=== PATIENT | female | born 1995 | race Caucasian/White ===

== ENCOUNTER → 2018-07-29 | Outpatient (REF) | payer BC, MEDICAID | LOC: M LAB REF 13:12 | PROVIDERS: ATTEND Advanced Practice Midwife | DX: Z34.81 Encounter for supervision of other normal pregnancy, first trimester (principal) ==

== ENCOUNTER → 2018-09-07 | Outpatient (CLI) | payer BC, MEDICAID ==
--- NOTE | 2018-09-08 04:27 | REP ---
Clinical: Anatomical evaluation. Comparison: None . Findings: Examination demonstrates a single live intrauterine in breech presentation. motion is identified by technologist. Placenta is noted posterofundally and grade zero with evidence for placenta previa. A large hematoma/subchorionic hemorrhage at the internal os is identified and measures 8.1 x 7.7 x 1.8 cm. Amniotic fluid volume is normal. Cervix measures 5.9 cm in length and appears closed. No evidence for nuchal cord. Gestational age by LMP 18 weeks 3 days with MARIA ANTONIA 02/05/2019 . Gestational age by current measurements 18 weeks 1 day with MARIA ANTONIA 02/07/2019 . FHR equals 157 beats per minute. BPD 3.8 cm 17 weeks 5 days HC 14.5 cm 17 weeks 5 days AC 12.8 cm 18 weeks 2 days FL 2.8 cm 18 weeks 4 days HL 2.6 cm 18 weeks 1 day HC/AC ratio 1.14 Estimated weight 235 grams ( 44th percentile). Anatomical assessment demonstrates normal structures including cranium, choroid plexus, cavum, cerebellum/posterior fossa, diaphragm, stomach, cord insertion/three-vessel cord, kidneys/bladder, spine, and extremities. Limited evaluation of the facial features, lungs, and heart/ventricular outflow tracts noted. Impression: 1. Live intrauterine in breech presentation demonstrating appropriate interval growth. 2. Placenta previa and subchorionic hemorrhage/hematoma as described above along with incomplete anatomical assessment warrants reevaluation and follow-up. Electronically Signed by Mark Mak MD 09/08/2018 04:18 A
== END ==
LOC: M RAD 17:37
PROVIDERS: ATTEND Advanced Practice Midwife
DX: Z34.82 Encounter for supervision of other normal pregnancy, second trimester (principal); Z3A.18 18 weeks gestation of pregnancy

== ENCOUNTER → 2018-10-05 | Outpatient (CLI) | payer BC, MEDICAID ==
--- NOTE | 2018-10-06 02:57 | REP ---
Clinical: Anatomical evaluation. Comparison: 09/07/2018 . Findings: Examination demonstrates a single live intrauterine in breech presentation. motion is identified by technologist. Placenta is noted posterior and grade zero without evidence for placenta previa or abruption. Amniotic fluid volume is normal. Cervix measures 4.3 cm in length and appears closed. No evidence for nuchal cord. Gestational age by LMP 22 weeks 3 days with MARIA ANTONIA 02/05/2019 . Gestational age by current measurements 22 weeks 0 days with MARIA ANTONIA 02/08/2019 . FHR equals 146 beats per minute. Estimated weight 503 grams ( 46 percentile). Anatomical assessment demonstrates normal structures including facial features, lungs, four-chamber heart/ventricular outflow tracts. The placenta tip is 4.4 cm from the closed internal os. The previously noted subchorionic hemorrhage is again identified and measures 7.3 x 2.3 x 7.1 cm. Impression: 1. Single live intrauterine in breech presentation demonstrating appropriate interval growth. 2. In conjunction with prior examination anatomical assessment is complete and normal. 3. Subchorionic hemorrhage again identified. Electronically Signed by Mark Mak MD 10/06/2018 02:48 A
== END ==
LOC: M RAD 16:38
PROVIDERS: ATTEND Obstetrics & Gynecology
DX: Z34.82 Encounter for supervision of other normal pregnancy, second trimester (principal); Z3A.22 22 weeks gestation of pregnancy

== ENCOUNTER → 2019-01-12 | Outpatient (CLI) | payer BC, MEDICAID ==
[~2019-01-12] MED LIST: PRENTAB9 PO; PSEU30TA85 PO
== END ==
LOC: M SMT 10:15
PROVIDERS: ATTEND Advanced Practice Midwife
DX: Z34.83 Encounter for supervision of other normal pregnancy, third trimester (principal); Z36.89 Encounter for other specified antenatal screening; Z36.85 Encounter for antenatal screening for Streptococcus B

== ENCOUNTER 2019-01-21 02:41 | Outpatient (CLI) | payer BC, MEDICAID ==
[~2019-01-21] VITALS: Ht 172.7 cm; Wt 82.5 kg
[2019-01-21 03:11] VITALS: BP 115/71
[2019-01-21] MEDS ORDERED: PSEU30TA85 PO (03:58)
[2019-01-21] MEDS ORDERED: PRENTAB9 PO (03:58)
[2019-01-21 07:41] VITALS: BP 116/65
--- NOTE | 2019-01-21 08:14 | IPN ---
DATE: 01/21/2019 Yulia is a 23-year-old 2, para 1-0-0-1, 37-6/7 weeks gestation, estimated date of confinement (EDC) of 02/05/2019 based on last menstrual period confirmed by first trimester ultrasound who presented to labor and delivery at approximately 0300 with complaint of painful contractions. Denies vaginal bleeding, leakage of fluid. The fetus has been active. She had intercourse late evening hours prior to her arrival. Her care was initiated at [facility] in the first trimester. course complicated by a history of placenta previa that had resolved October 2018. OBSTETRICAL HISTORY: September 2017 38-4/7 weeks, 8 pounds 9 ounces male, vaginal delivery uncomplicated. OBSTETRIC LABS: A+, antibody screen negative, rubella immune, VDRL nonreactive. Urine culture no growth. Hep B surface antigen negative, HIV negative. Hep C antibody nonreactive. Gonorrhea and chlamydia negative. She did not have genetic serum screening labs performed. Gestational diabetic screening normal at 88 and her GBS is negative. PAST MEDICAL HISTORY: Lichen sclerosis in the perianal region. SURGERIES: [place] tooth extraction. FAMILY HISTORY: Diabetes, hypertension, heart disease. SOCIAL HISTORY: The patient is . Her is at bedside and supportive. She is a nonsmoker. She denies alcohol and drug use. No history of any sexually transmitted infections and denies history of abuse physical, sexual and emotional ALLERGIES: No known drug allergies. CURRENT MEDICATIONS: vitamin. OBJECTIVE: Temperature 98.8, pulse 96, respirations 18, BP 115/71. Upon arrival, she was not evaluated by this provider. It is now 0750 and she does appear completely comfortable. She is smiling and talkative and in no distress. The heart rate is 140 with moderate variability, positive accelerations, no decelerations observed. There is occasional contraction. Her sterile vaginal exam: 3-4, 80% effaced, -1 station. There is some moderate show with the exam. Abdomen: Gravid, cephalic presentation. Estimated weight 8 pounds. ASSESSMENT: Interim at 37-6/7 weeks. heart rate category 1, not in active labor. PLAN: Discharge the patient to home. She is to keep her next scheduled visit. I did review signs and symptoms of active labor, movement counts and danger signs to report. I did review access to care. The patient and her partner have had all their questions answered and are agreeable to this plan.
== END 2019-01-21 08:11 | disposition home or self-care (01) ==
LOC: M LDO 02:41
PROVIDERS: ATTEND Advanced Practice Midwife
DX: O47.1 False labor at or after 37 completed weeks of gestation (principal); Z3A.37 37 weeks gestation of pregnancy
CPT/HCPCS: 59025; G0378; G0463

== ENCOUNTER 2019-01-28 09:41 | Inpatient (IN) | payer BC, MEDICAID ==
[~2019-01-28] VITALS: Ht 172.7 cm; Wt 83.9 kg
[2019-01-28] VITALS (8 sets, daily range): BP systolic 112–136; BP diastolic 62–82
--- NOTE | 2019-01-28 10:31 | HPEPDOC ---
Obstetrical History & Physical General Date of Admission Jan 28, 2019 at 10:17 History of Present Illness Chief Complaint: Contractions, term Information Provided By: Patient Age: 23 : 2 Term: 1 Pre-term: 0 Abortions: 0 Livin Care Care: Good Care Dating Final EDC: Feb 05, 2019 Final EDC by: LMP EGA at Admission: 38 (+6) Antepartum Course Height (inches): 68 Pre- weight (lbs.): 155 Admission Weight (lbs.): 184 Past Medical History Past Obstetrical History : Past Obstetrical History: Primgravida (2018) Type of Delivery: Spontaneous Vaginal Del. 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 Past Medical History Medical History perineal lichen sclerosis Surgical History: Other (dental) Family History Significant Family History: Diabetes, Heart disease, Hypertension Social History Marital Status: Family situation: Spouse/partner home Psychosocial History: No pertinent psych hx * Smoker: non-smoker Alcohol: Denies Drugs: denies Abuse Violence Screening Have you been hit/kicked/slapp: No Imunizations Tdap status: current Allergies Coded Allergies: No Known Allergies (Unverified , 01/21/19) Medications Scheduled No.137/Iron/Folic Acd ( Vitamin Tablet) 1 Each Tablet, 1 TAB PO DAILY Scheduled PRN Pseudoephedrine HCl (Sudafed) 30 Mg Tablet, 30 MG PO Q6-8HP PRN for CONGESTION Physical Examination Physical Examination GENERAL: Alert and oriented times three. BREAST: . ABDOMEN: Gravid and non-tender to touch. FETUS: Is vertex (VTX) by sterile vaginal examination (SVE), fetus is vertex (VTX) by Kristopher. HEART RATE: Regular rate and rhythm. LUNGS: Clear to auscultation (CTA). EXTREMITIES: No edema. No clonus. Deep tendon reflexes (DTRs) + 2. Pertinent Laboratoy Data Blood Type: A+ RBC Antibody Screen: Negative HIV: Negative Hepatitis B: Negative Hepatitis C: Negative Rapid Plasma Reagin: Nonreactive Rubella: Immune Chlamydia/Gonorrhea: Negative Group B Streptococcus: Negative Quad Screen Test: Declined Glucose Tolerance Test: 88 Anatomy Ultrasound Ultrasound Date: September 07, 2018 Placenta Location: Posterior (fundal) Normal Anatomy: Yes Placenta Previa: Yes (large subchorionic hematoma) Estimated Weight (grams): 235 Other Ultrasounds 07/27/18 dating 11w5d 08/16/18 bleeding, subchorionic hemorrhage 10/05/18 f/u anatomy. previa resolved, 4.4cm from inner os. normal anatomy Steroid Therapy Steroid Therapy: No Vaginal Examination Dilation: 6 cm Effacement: 90% Station: -1, 0 Cervical Consistency: Soft Cervical Position: Middle Presentation: Cephalic presentation Assessment Heart Rate (FHR): 140 Variability: Moderate Accelerations: Positive Decelerations: None Tocometer Contractions: Yes Frequency: regular, every 2-5 min. Duration: greater than 60 seconds Strength: palpated as moderate Assessment/Plan Assessment Yulia is a 23-year-old (G)2 para (P)1-0-0-1 at 38+6 weeks by 11-week ultrasound. Presents to Labor and Delivery (L&D) with complaints of contractions through the night. Was evaluated by Anastasia Liang this am in office, found to be 5cm. Now reporting stronger, more uncomfortable UC. Plan Admit and orient. [employer] and consent. Diet: clear liquids. Group B Streptococcus (GBS) negative. Labs and intravenous (IV) per unit protocol. Counseled on Pitocin and induction of labor (IOL). Saline lock Pt plans to labor ad [place]. Desires to use the tub Anticipate normal spontaneous delivery (). C-S as appropriate. Kae Saini CNM Jan 28, 2019 10:31
[2019-01-28 10:56] LABS: HEMATOCRIT 36.8 % (36.0-47.0); HEMOGLOBIN 12.5 g/dl (12.0-15.5); MEAN CORPUSCULAR HEMOGLOBIN 33.5 pg (27.0-33.0); MEAN CORPUSCULAR VOLUME 98.7 fl (80.0-96.0); PLATELET COUNT, AUTOMATED 218 10^3/uL (150-450); RED BLOOD COUNT 3.73 10^6/uL (4.00-5.40); WHITE BLOOD COUNT 11.7 10^3/uL (4.0-10.0)
[2019-01-28] MEDS ORDERED: OXYTOCIN 30 UNITS IN 0.9% NaCl 500ML IV BAG (J2590) As Ordered ONE (13:22)
[2019-01-28] MEDS ORDERED: OXYTOCIN DRIP 30 UNITS in IV 1 EA IV SCH (14:18)
[2019-01-28] MEDS ORDERED: RHOGAM 300 MCG (1500 IU) INJ (J2790) IM SCH (14:30)
[2019-01-28] MEDS ORDERED: IBUPROFEN 600 MG TAB PO PRN (14:30)
[2019-01-28] MEDS ORDERED: ANUSOL HC CREAM 30GM TOP PRN (14:30)
[2019-01-28] MEDS ORDERED: MEASLES,MUMPS,RUBELLA VACCINE INJ (MMR-II) (90707) SC SCH (14:30)
[2019-01-28] MEDS ORDERED: MOM 30ML SUSPENSION UDC PO PRN (14:30)
[2019-01-28] MEDS ORDERED: LIDOCAINE 1% MDV 20ML VIAL INFIL ONE (14:30)
[2019-01-28] MEDS: IBUPROFEN 800 MG TAB PO PRN (14:41)
[2019-01-28] MEDS: DIBUCAINE 1% OINTMENT 30GM TOP PRN (14:42)
--- NOTE | 2019-01-28 14:51 | DNPDOC ---
[facility] Delivery Note Delivery Note DATE OF DELIVERY: January 28, 2019 PREDELIVERY DIAGNOSIS: 38-6/7 weeks' gestation and labor. POST DELIVERY DIAGNOSIS: Delivered. PROCEDURE: Spontaneous vaginal delivery. PROVIDER: Kae Saini CNM ANESTHESIA: None. ESTIMATED BLOOD LOSS: 200 mL. FINDINGS: 8 pound 11 ounce, 3930gm male , Score 8/9, no nuchal cord. DELIVERY SUMMARY: Patient is a 23-year-old 2 now para 2-0-0-2 who was admitted to labor and delivery for active labor. She coped physiologically with her labor. AROM clear fluid 1309. FD 1335. Viable male delivered HELEN in all- fours position without difficulty at 1346. Spontaneous respirations, transitioned on maternal abdomen. Cord doubly clamped and cut by FOB under my direction once pulsations ceased. Apgars 8/9. Placenta [place], intact with 3v cord @ 1352. Fundus firmed with massage and IV pitocin bolus. Perineum, cervix and vagina inspected. First degree perineal laceration repaired with 3-0 vicryl rapide after infiltration with lidocaine. R labial abrasion also infiltrated and reapproximated with one single stitch of same suture. Cervix swept of clots. EBL 200ml. Sponge, sharp and instrument count correct. Kae Saini CNM Jan 28, 2019 14:27
[2019-01-28] MEDS: METHYLERGONOVINE MALEATE 0.2 MG TAB PO SCH ×2 (15:32→21:21)
[2019-01-28] MEDS: ACETAMINOPHEN 500 MG TAB PO PRN (19:26)
[2019-01-28] MEDS: DOCUSATE SODIUM 100 MG CAP PO PRN (21:21)
[2019-01-29] MEDS: IBUPROFEN 800 MG TAB PO PRN ×3 (00:22→19:56)
[2019-01-29] MEDS: ACETAMINOPHEN 500 MG TAB PO PRN (04:09)
[2019-01-29] MEDS: METHYLERGONOVINE MALEATE 0.2 MG TAB PO SCH ×2 (04:10→08:42)
[2019-01-29 05:51] VITALS: BP 103/66
--- NOTE | 2019-01-29 07:03 | IPNPDOC ---
Text Note Date of Service The patient was seen on 01/29/19. NOTE PP#1 Feels well. OOB independently. Nursing. Voiding VSS, afebrile, normotensive Breasts soft, nipples intact Fundus firm, NT, down 1 FB Lochia rubra light without odor Perineum well approximated without edema PP #1, Routine care. Anticipate D/C in am VS,Fishbone, I+O VS, Fishbone, I+O Laboratory Tests 01/28/19 10:48 Red Blood Count 3.73 L, Mean Corpuscular Volume 98.7 H, Mean Corpuscular Hemoglobin 33.5 H, Mean Corpuscular Hemoglobin Concent 34.0, Red Cell Distribution Width 12.8 Vital Signs Date Time Temp Pulse Resp B/P (MAP) Pulse Ox O2 Delivery O2 Flow Rate FiO2 01/29/19 05:51 98.5 89 16 103/66 (78) 96 I&O- Last 24 Hours up to 6 AM 01/29/19 06:00 Output Total 200 ml Balance -200 ml Kae Saini CNM Jan 29, 2019 07:02
[2019-01-29] MEDS: PRENATAL VITAMINS CHEWABLE TABLET PO SCH (08:42)
[2019-01-29] MEDS: ACETAMINOPHEN TAB 650MG DOSE (2X325MG) PO PRN ×3 (12:04→21:15)
[2019-01-29] MEDS ORDERED: METHYLERGONOVINE MALEATE 0.2 MG TAB PO PRN (15:00)
[2019-01-29 17:31] VITALS: BP 108/60
[2019-01-29] MEDS: DOCUSATE SODIUM 100 MG CAP PO PRN (21:14)
[2019-01-30] MEDS: ACETAMINOPHEN TAB 650MG DOSE (2X325MG) PO PRN (02:03)
[2019-01-30] MEDS: IBUPROFEN 800 MG TAB PO PRN ×2 (04:38→12:39)
[2019-01-30 06:00] VITALS: BP 103/57
[2019-01-30] MEDS: PRENATAL VITAMINS CHEWABLE TABLET PO SCH (09:27)
[2019-01-30] MEDS: DIBUCAINE 1% OINTMENT 30GM TOP PRN (09:28)
[2019-01-30] MEDS: ACETAMINOPHEN 500 MG TAB PO PRN (09:28)
[2019-01-30] MEDS ORDERED: IBUP80TA PO (10:09)
== END 2019-01-30 13:06 | disposition home or self-care (01) | DRG 560 ==
LOC: M LDO 09:41 → M LDI 10:17 → M OBS 16:46
PROVIDERS: ADMIT Advanced Practice Midwife; ATTEND Advanced Practice Midwife
PROC: 10E0XZZ Delivery of Products of Conception, External Approach (ICD-10-PCS; principal; 2019-01-28)
PROC: 10907ZC Drainage of Amniotic Fluid, Therapeutic from Products of Conception, Via Natural or Artificial Opening (ICD-10-PCS; 2019-01-28)
PROC: 0HQ9XZZ Repair Perineum Skin, External Approach (ICD-10-PCS; 2019-01-28)
DX: O70.0 First degree perineal laceration during delivery (principal); Z3A.38 38 weeks gestation of pregnancy; Z37.0 Single live birth

== ENCOUNTER → 2019-03-15 | Outpatient (REF) | payer BC, MEDICAID ==
[~2019-03-15] MED LIST changes: +IBUP80TA PO
[2019-03-15 11:53] LABS: CHLAMYDIA DNA AMPLIFICATION NEGATIVE (NEGATIVE); GC DNA AMPLIFICATION NEGATIVE (NEGATIVE)
== END ==
LOC: M LAB REF 09:51
PROVIDERS: ATTEND Advanced Practice Midwife
DX: Z11.3 Encounter for screening for infections with a predominantly sexual mode of transmission (principal)

== ENCOUNTER 2020-05-06 11:30 | Emergency (ER) | payer BC, MEDICAID ==
[~2020-05-06] VITALS: Ht 172.7 cm; Wt 66.0 kg
[2020-05-06] MEDS ORDERED: PIME1CRE (11:36)
[2020-05-06] MEDS ORDERED: ACET-683 PO (11:36)
[2020-05-06 12:28] LABS: BASO % 0.6 % (0.0-1.0); EOS # 0.1 10^3/uL (0.0-0.5); HEMATOCRIT 40.6 % (36.0-47.0); LYMPH # 3.4 10^3/uL (1.5-5.0); LYMPH % 49.4 % (24.0-44.0); MEAN CORPUSCULAR HEMOGLOBIN 31.3 pg (27.0-33.0); MEAN CORPUSCULAR VOLUME 97.6 fl (80.0-96.0); MONO # 0.5 10^3/uL (0.0-0.8); MONO % 7.1 % (0.0-5.0); NEUTROPHILS # 2.9 10^3/uL (1.5-8.5); NEUTROPHILS % 41.6 % (36.0-66.0); PLATELET COUNT, AUTOMATED 275 10^3/uL (150-450); RED BLOOD COUNT 4.16 10^6/uL (4.00-5.40); WHITE BLOOD COUNT 6.9 10^3/uL (4.0-10.0)
[2020-05-06 12:31] LABS: APPEARANCE, URINE CLEAR (CLEAR); BACTERIA, URINE AUTO NEGATIVE (NEGATIVE); BILIRUBIN, URINE AUTO NEGATIVE (NEGATIVE); BLOOD, URINE BLOOD 1+ (NEGATIVE); COLOR, URINE YELLOW (YELLOW); GLUCOSE, URINE (UA) AUTO NEGATIVE (NEGATIVE); KETONE, URINE AUTO NEGATIVE (NEGATIVE); LEUKOCYTE ESTERASE, URINE AUTO NEGATIVE (NEGATIVE); MUCUS, URINE SMALL (NEGATIVE); NITRITE, URINE AUTO NEGATIVE (NEGATIVE); PROTEIN, URINE AUTO NEGATIVE (NEGATIVE); RBC, URINE AUTO 12 /HPF (0-3); SPECIFIC GRAVITY URINE AUTO 1.023 (1.002-1.035); SQUAMOUS EPITHELIAL CELL UR AU 0 /HPF (0-6); UROBILINOGEN, URINE AUTO 0.2 mg/dL (0.0-2.0); WBC, URINE AUTO 0 /HPF (0-3)
[2020-05-06 13:03] LABS: BLOOD UREA NITROGEN 17 MG/DL (7-18); CARBON DIOXIDE LEVEL 28 MEQ/L (21-32); CHLORIDE LEVEL 105 MEQ/L (98-107); CREATININE FOR GFR 0.81 MG/DL (0.55-1.30); GLOMERULAR FILTRATION RATE > 60.0 (>60); GLUCOSE, FASTING 95 MG/DL (70-100); HCG, SERUM QUANTITATIVE 489 MIU/ML; POTASSIUM SERUM 4.1 MEQ/L (3.5-5.1); SODIUM LEVEL 139 MEQ/L (136-145)
--- NOTE | 2020-05-06 14:30 | REP ---
INDICATION: 4-5 wks with vag bleeding COMPARISON: None. TECHNIQUE: Transabdominal and transvaginal 1st trimester obstetrical ultrasound with color Doppler evaluation. FINDINGS: Heterogeneous anteverted uterus measures 9.2 x 3.8 x 5.5 cm. The endometrial complex measures 11 mm thickness and a small amount of heterogeneous endocervical fluid is compatible with hemorrhagic debris and consistent with the patient's current vaginal bleeding. No intrauterine identified. Bilateral ovaries are normal in appearance and vascularity without torsion. Right ovary measures 3.3 x 1.9 x 2.4 cm (RI 0.48). Left ovary measures 3.3 x 1.9 x 2.7 cm (RI 0.62) and includes 2.2 cm complex cyst possible corpus luteum. No pelvic fluid or adnexal mass lesion noted. IMPRESSION: Findings described above likely represent spontaneous in progress. Differential diagnosis may include early and less likely ectopic cannot be excluded. <Electronically signed by Mark Mak > 05/06/20 0388
[2020-05-06 14:34] VITALS: BP 107/66
== END 2020-05-06 14:36 | disposition home or self-care (01) ==
LOC: M ED 11:30
DX: O20.9 Hemorrhage in early pregnancy, unspecified (principal); Z3A.01 Less than 8 weeks gestation of pregnancy

== ENCOUNTER → 2020-05-24 | Outpatient (REF) | payer BC, MEDICAID ==
[~2020-05-24] MED LIST changes: +ACET-683 PO; +PIME1CRE
== END ==
LOC: M SFHCWAGY 16:50 → M PLALAB 16:50
PROVIDERS: ATTEND Advanced Practice Midwife
DX: O03.9 Complete or unspecified spontaneous abortion without complication (principal)

== ENCOUNTER → 2020-07-03 | Outpatient (REF) | payer BC, MEDICAID ==
[2020-07-03 14:20] LABS: HEMATOCRIT 38.4 % (36.0-47.0); HEMOGLOBIN 12.3 g/dl (12.0-15.5); MEAN CORPUSCULAR HEMOGLOBIN 31.1 pg (27.0-33.0); PLATELET COUNT, AUTOMATED 301 10^3/uL (150-450); RED BLOOD COUNT 3.96 10^6/uL (4.00-5.40); WHITE BLOOD COUNT 6.5 10^3/uL (4.0-10.0)
[2020-07-03 15:39] LABS: HEPATITIS C VIRUS ABY INDEX < 0.0 INDEX (<0.8); HIV 1&2 SCREEN CENTAUR NEGATIVE (NEGATIVE)
== END ==
LOC: M PLALAB 11:30
PROVIDERS: ATTEND Advanced Practice Midwife
DX: Z36.89 Encounter for other specified antenatal screening (principal); Z3A.08 8 weeks gestation of pregnancy

== ENCOUNTER → 2020-09-14 | Outpatient (CLI) | payer BC, MEDICAID ==
--- NOTE | 2020-09-14 09:15 | REP ---
INDICATION: ANATOMY COMPARISON: 05/06/2020 TECHNIQUE: Transabdominal obstetrical ultrasound with color Doppler evaluation. FINDINGS: Examination demonstrates a single live intrauterine in breech presentation. motion is identified by technologist. Placenta is noted anterior and grade 0 without evidence for placenta previa or abruption. Amniotic fluid volume is normal. Cervix measures 3.0 cm in length and appears closed.. Gestational age by LMP 18 weeks 6 days with MARIA ANTONIA 02/09/2021. Gestational age by current measurements 19 weeks 2 days with MARIA ANTONIA 02/06/2021. FHR equals 158 beats per minute. Estimated weight 283 grams (71stpercentile). Anatomical assessment demonstrates normal structures including cranium, choroid plexus, cavum, cerebellum/posterior fossa, facial features, lungs, diaphragm, stomach, cord insertion/three-vessel cord, kidneys/bladder, spine, and extremities. IMPRESSION: Single live intrauterine in breech presentation demonstrating appropriate estimated weight. Limited evaluation of the heart/ventricular outflow tracts. Remainder of the anatomical assessment is complete and normal. <Electronically signed by Mark Mak > 09/14/20 0910
== END ==
LOC: M WHC 08:05
PROVIDERS: ATTEND Advanced Practice Midwife
DX: Z36.89 Encounter for other specified antenatal screening (principal); Z3A.18 18 weeks gestation of pregnancy

== ENCOUNTER → 2020-10-03 | Outpatient (CLI) | payer BC, MEDICAID ==
--- NOTE | 2020-10-03 10:13 | REP ---
INDICATION: F/U ANATOMY COMPARISON: 09/14/2020 TECHNIQUE: Transabdominal obstetrical ultrasound with color Doppler evaluation. FINDINGS: Examination demonstrates a single live intrauterine in cephalic presentation. motion is identified by technologist. Placenta is noted anterior and grade 1 without evidence for placenta previa or abruption. Amniotic fluid volume is normal. Cervix measures 4.0 cm in length and appears closed.. Gestational age by LMP and 1st U/S 21 weeks 4 days with MARIA ANTONIA 02/09/2021. Gestational age by current measurements 22 weeks 1 day with MARIA ANTONIA 02/05/2021. FHR equals 142 beats per minute. Estimated weight 486 grams (53rdpercentile). Anatomical assessment demonstrates normal structures including cranium, choroid plexus, cavum, cerebellum/posterior fossa, facial features, lungs, four-chamber heart/ventricular outflow tracts, diaphragm, stomach, cord insertion/three-vessel cord, kidneys/bladder, and extremities. IMPRESSION: Single live intrauterine in cephalic presentation demonstrating appropriate interval growth. In conjunction with prior examination anatomical assessment is complete and normal. <Electronically signed by Mark Mak > 10/03/20 1859
== END ==
LOC: M WHC 08:07
PROVIDERS: ATTEND Advanced Practice Midwife
DX: Z36.89 Encounter for other specified antenatal screening (principal); Z3A.21 21 weeks gestation of pregnancy

== ENCOUNTER 2020-11-21 15:18 | Outpatient (CLI) | payer BC, MEDICAID ==
--- NOTE | 2020-11-21 18:10 | IPN ---
PROGRESS NOTE DATE: 11/21/2020 SUBJECTIVE: Yulia is a 25-year-old 4, para 2-0-1-2 at 28-4/7 weeks' gestation, EDC of 02/09/2021 based on first trimester ultrasound presents to labor and delivery today with a complaint of decreased movement. She does deny vaginal bleeding, leakage of fluid, and regular painful contractions. [place] with a transfer of care to [facility] in the second trimester. course complicated by chronic lichen sclerosus. OBSTETRIC HISTORY: 1. September 2017, 39 weeks gestation, 8 pound, 9 ounce male, vaginal delivery. No complications. 2. January 2019, 38 weeks gestation, 8 pound, 11 ounce male, vaginal delivery, placenta previa that resolved spontaneously. 3. Six week spontaneous miscarriage. 4. Current . OBSTETRIC LABS: A positive, antibody screen negative. Urine culture no growth. Rubella immune. Gonorrhea and chlamydia negative. HIV negative. Hepatitis C negative. Hepatitis B negative. Gestational diabetic screening pending. PAST MEDICAL HISTORY: Lichen sclerosus. SURGERIES: Dental. FAMILY HISTORY: Diabetes, hypertension, heart disease. SOCIAL HISTORY: The patient is . Her is at bedside. She is a nonsmoker. Denies alcohol and drug use. No history of sexually transmitted infections. Denies history of abuse, physical, sexual and emotional. ALLERGIES: No known drug allergies. CURRENT MEDICATIONS: vitamin. OBJECTIVE: Vital signs: Blood pressure 115/61. The heart rate is appropriate for gestational age 150 with moderate variability. There is no pattern of regular contractions. SVE deferred. ASSESSMENT: Intrauterine at 28 and 4/7 weeks. heart rate appropriate for gestational age. The patient is reassured. PLAN: Discharged the patient home. She is to follow up for her next scheduled appointment at [facility]. I did review signs and symptoms of labor, movement counts and access to care as well as danger signs. The patient and her have had all of their questions answered and do desire discharge.
== END 2020-11-21 17:15 | disposition home or self-care (01) ==
LOC: M LDO 15:18
PROVIDERS: ATTEND Advanced Practice Midwife
DX: O36.8130 Decreased fetal movements, third trimester, not applicable or unspecified (principal); Z3A.28 28 weeks gestation of pregnancy; O99.713 Diseases of the skin and subcutaneous tissue complicating pregnancy, third trimester; L90.0 Lichen sclerosus et atrophicus
CPT/HCPCS: 59025; G0378; G0463

== ENCOUNTER → 2021-01-10 | Outpatient (REF) | payer BC, MEDICAID ==
[~2021-01-10] MED LIST changes: -PSEU30TA85 PO; +PSEU30TA86 PO
== END ==
LOC: M SFHCWAGY 16:57
PROVIDERS: ATTEND Advanced Practice Midwife
DX: Z34.83 Encounter for supervision of other normal pregnancy, third trimester (principal)

== ENCOUNTER → 2022-07-16 | Outpatient (CLI) | payer OTHER | LOC: M PLALAB 12:28 | PROVIDERS: ATTEND Advanced Practice Midwife | DX: Z34.90 Encounter for supervision of normal pregnancy, unspecified, unspecified trimester (principal); L53.9 Erythematous condition, unspecified; N89.8 Other specified noninflammatory disorders of vagina ==

== ENCOUNTER → 2022-09-19 | Outpatient (CLI) | payer OTHER ==
[2022-09-19 14:19] LABS: HEMATOCRIT 39.9 % (36.0-47.0); HEMOGLOBIN 12.9 g/dl (12.0-15.5); MEAN CORPUSCULAR HGB CONC 32.3 g/dl (32.0-36.5); MEAN CORPUSCULAR VOLUME 95.9 fl (80.0-96.0); PLATELET COUNT, AUTOMATED 336 10^3/uL (150-450); RED BLOOD COUNT 4.16 10^6/uL (4.00-5.40); WHITE BLOOD COUNT 8.1 10^3/uL (4.0-10.0)
[2022-09-19 14:25] LABS: HIV 1&2 SCREEN NEGATIVE (NEGATIVE)
[2022-09-19 21:57] LABS: GC DNA AMPLIFICATION NEGATIVE (NEGATIVE)
== END ==
LOC: M PLALAB 10:12
PROVIDERS: ATTEND Advanced Practice Midwife
DX: Z34.81 Encounter for supervision of other normal pregnancy, first trimester (principal)

== ENCOUNTER → 2022-11-12 | Outpatient (CLI) | payer BC, OTHER | LOC: M WHC 12:24 | PROVIDERS: ATTEND Advanced Practice Midwife | DX: Z34.82 Encounter for supervision of other normal pregnancy, second trimester (principal); Z3A.20 20 weeks gestation of pregnancy ==

== ENCOUNTER → 2023-01-07 | Outpatient (CLI) | payer BC, OTHER ==
[2023-01-07 13:50] LABS: HEMATOCRIT 35.5 % (36.0-47.0); HEMOGLOBIN 11.5 g/dl (12.0-15.5); MEAN CORPUSCULAR HGB CONC 32.4 g/dl (32.0-36.5); MEAN CORPUSCULAR VOLUME 98.9 fl (80.0-96.0); PLATELET COUNT, AUTOMATED 276 10^3/uL (150-450); RED BLOOD COUNT 3.59 10^6/uL (4.00-5.40); WHITE BLOOD COUNT 9.2 10^3/uL (4.0-10.0)
== END ==
LOC: M PLALAB 10:26
PROVIDERS: ATTEND Advanced Practice Midwife
DX: Z34.82 Encounter for supervision of other normal pregnancy, second trimester (principal)

== ENCOUNTER → 2023-01-07 | Outpatient (CLI) | payer BC, OTHER | LOC: M WHC 09:36 | PROVIDERS: ATTEND Advanced Practice Midwife | DX: Z34.82 Encounter for supervision of other normal pregnancy, second trimester (principal) ==

== ENCOUNTER → 2023-03-04 | Outpatient (REF) | payer OTHER, BC | LOC: M SFHCWAGY 13:03 | PROVIDERS: ATTEND Advanced Practice Midwife | DX: O22.00 Varicose veins of lower extremity in pregnancy, unspecified trimester (principal); Z3A.00 Weeks of gestation of pregnancy not specified ==

== ENCOUNTER → 2023-05-12 | Outpatient (REF) | payer BC, OTHER | LOC: M SFHCWAGY 13:36 | PROVIDERS: ATTEND Advanced Practice Midwife | DX: J02.9 Acute pharyngitis, unspecified (principal) ==

== ENCOUNTER → 2023-09-04 | Outpatient (REF) | payer BC ==
[~2023-09-04] MED LIST changes: -PSEU30TA86 PO; +PSEU30TA87 PO
== END ==
LOC: M PLALAB 09:56
PROVIDERS: ATTEND Advanced Practice Midwife
DX: Z12.4 Encounter for screening for malignant neoplasm of cervix (principal)